=== PATIENT | male | born 1970 ===

== ENCOUNTER → 2021-07-09 | Day surgery (SDC) | payer MEDICAID ==
[~2021-07-09] MED LIST: ALPRazolam 1MG TAB ONE
== END | disposition home or self-care (01) ==
LOC: RAD 08:00 → EDSTATUS 12:30
PROVIDERS: ATTEND Registered Nurse
DX: M54.16 Radiculopathy, lumbar region (principal); M48.061 Spinal stenosis, lumbar region without neurogenic claudication; M48.02 Spinal stenosis, cervical region; M54.12 Radiculopathy, cervical region; M25.78 Osteophyte, vertebrae; Z79.899 Other long term (current) drug therapy; Z88.8 Allergy status to other drugs, medicaments and biological substances; Z98.890 Other specified postprocedural states; Z80.8 Family history of malignant neoplasm of other organs or systems
CPT/HCPCS: 72110; 72148